=== PATIENT | female | born 1975 | race American Indian/Alaskan Native ===

== ENCOUNTER 2018-03-16 14:18 | Outpatient (CLI) | payer OTHER ==
[~2018-03-16] VITALS: Ht 165.1 cm; Wt 57.6 kg
== END 2018-03-16 14:35 | disposition home or self-care (01) ==
LOC: OFIC 805 14:18
DX: H91.8X2 Other specified hearing loss, left ear (principal); H61.22 Impacted cerumen, left ear

== ENCOUNTER 2020-08-06 11:11 | Emergency (ER) | payer OTHER ==
[~2020-08-06] VITALS: Ht 165.1 cm; Wt 59.0 kg
[2020-08-06] MEDS ORDERED: WELLBUTRIN XL150 M1 (11:37)
[2020-08-06] MEDS ORDERED: BUSPIRONE HCL7.5 MG (11:37)
== END 2020-08-06 22:09 | disposition home or self-care (01) ==
LOC: ER 11:11
DX: R10.32 Left lower quadrant pain (principal); M54.5 Low back pain; R10.2 Pelvic and perineal pain